=== PATIENT | male | born 1970 | race Caucasian/White ===

== ENCOUNTER 2023-11-20 14:59 | Emergency (ER) | payer SELFPAY ==
[2023-11-20] MEDS ORDERED: Lidocaine 1% w/Epinephrine 1:100K 20 ML VIAL ONE (15:38)
[2023-11-20] MEDS ORDERED: Bacitracin 1 PK ONE (16:35)
== END 2023-11-20 16:38 | disposition home or self-care (01) ==
LOC: MADERS 14:59
DX: S01.01XA Laceration without foreign body of scalp, initial encounter (principal); I12.9 Hypertensive chronic kidney disease with stage 1 through stage 4 chronic kidney disease, or unspecified chronic kidney disease; E11.22 Type 2 diabetes mellitus with diabetic chronic kidney disease; N18.2 Chronic kidney disease, stage 2 (mild); F17.210 Nicotine dependence, cigarettes, uncomplicated; W22.8XXA Striking against or struck by other objects, initial encounter; Z79.899 Other long term (current) drug therapy
CPT/HCPCS: 12002; 99282

== ENCOUNTER 2023-12-01 22:49 | Emergency (ER) | payer SELFPAY | END 2023-12-01 23:57 | disposition home or self-care (01) | LOC: MADERS 22:49 | DX: S01.01XD Laceration without foreign body of scalp, subsequent encounter (principal); F17.210 Nicotine dependence, cigarettes, uncomplicated; I12.9 Hypertensive chronic kidney disease with stage 1 through stage 4 chronic kidney disease, or unspecified chronic kidney disease; E11.22 Type 2 diabetes mellitus with diabetic chronic kidney disease; N18.9 Chronic kidney disease, unspecified; W26.8XXD Contact with other sharp object(s), not elsewhere classified, subsequent encounter ==

== ENCOUNTER 2024-05-28 16:09 | Emergency (ER) | payer SELFPAY ==
[2024-05-28 17:09] LABS: Bilirubin Negative (Negative); Blood, Urine Negative (Negative); Clarity Clear (Clear); Glucose, Urine (Dipstick) Negative (Negative); Ketone, Urine Negative (Negative); Leukocyte Negative (Negative); Nitrite Negative (Negative); Protein, Urine (Dipstick) 100 mg/dL (Neg-Trace); Specific Gravity, Urine 1.025 (1.005-1.030); Urobilinogen 0.2 mg/dL (Less than 2)
[2024-05-28 17:10] LABS: Bacteria/HPF Rare-Few HPF (None Seen); CAUTI Indications for Culture Pelvic or flank pain; RBC/HPF 0-3 HPF (0-3); Squamous Epithelial 0-3 HPF (0-3); WBC/HPF 0-3 HPF (0-3)
[2024-05-28 17:11] LABS: Urine Culture Reflex No No
[2024-05-28 17:19] LABS: Amphetamine Detected (NotDetected); Barbiturates Screen Not Detected (NotDetected); Benzodiazepine Screen Not Detected (NotDetected); Cocaine Metabolite Screen Not Detected (NotDetected); Methadone Not Detected (NotDetected); Methamphetamine Detected (NotDetected); Opiate Screen Not Detected (NotDetected); Oxycodone Screen Not Detected (NotDetected); Phencyclidine (PCP) Not Detected (NotDetected); THC/Cannabinoid Screen Not Detected (NotDetected); Tricyclic Screen Not Detected (NotDetected)
[2024-05-28] MEDS ORDERED: Sodium Chloride 0.9% 1,000 ML ONE ×2 (17:21→18:12)
[2024-05-28] MEDS ORDERED: Ketorolac Tromethamine 30 MG (1 mL) VIAL ONE (17:21)
[2024-05-28] MEDS ORDERED: Ondansetron PF 4 MG/2 ML Vial ONE (17:21)
[2024-05-28] MEDS ORDERED: Gabapentin 100 MG CAP ONE (17:21)
[2024-05-28 17:33] LABS: #Basophils 0.1 thou/uL (0.0-0.2); #Eosinphils 0.3 thou/uL (0.0-0.7); #Lymphocytes 2.5 thou/uL (1.20-3.40); #Monocytes 0.5 thou/uL (0.11-0.59); #Neutrophils 4.1 thou/uL (1.40-6.50); %Basophils 1.3 % (0.0-1.0); %Eosinophils 4.3 % (0.0-10.0); %Monocytes 6.6 % (0.0-10.0); %Neutrophils 54.8 % (42.0-75.0); Hematocrit 55.1 % (42.0-52.0); Hemoglobin 16.8 g/dL (14.0-18.0); Mean Corpuscular HGB CONC 30.5 g/dL (32.0-36.0); Mean Corpuscular Volume 88.5 fl (78.0-98.0); Mean Platelet Volume 8.3 fL (7.4-10.4); Platelet Count 231 10x3/uL (130-400); Red Blood Cell (RBC) Count 6.22 mill/uL (4.70-6.10); White Blood Cell (WBC) Count 7.5 10x3/uL (4.8-10.8)
[2024-05-28 17:43] LABS: Base Excess-Venous -1.3 mmol/L (-2.0 to 3.0); Bicarbonate (HCO3v) 20.8 mmol/L (22.0-28.0); CO2 Tension (PvCO2) 28.4 mmHg (42.0-51.0); Calcium, Ionized 1.16 mmol/L (1.15-1.33); Chloride 106 mmol/L (98-107); Hemoglobin - Calc 16.7 g/dL (14.0-18.0); Sodium 137 mmol/L (138-145); T. Carbon Dioxide 21.7 mmol/L (22.0-28.0); vO2 Saturation-calc 99.3 % (60.0-85.0)
[2024-05-28 17:47] LABS: Troponin I 0.037 ng/mL (< 0.028)
[2024-05-28 17:48] LABS: Acetaminophen Less than 10 mcg/mL (10.0-30.0); Alcohol Less than 10.0 mg/dL (Less than 10); Lipase 121 U/L (8-78); Salicylate Less than 8.0 mg/dL (15.0-30.0)
[2024-05-28 17:51] LABS: ALT (SGPT) 74 U/L (8-55); AST (SGOT) 51 U/L (5-34); Albumin 3.8 g/dL (3.5-5.0); Alkaline Phosphatase 100 U/L (40-110); Anion Gap 15 mmol/L (10-20); BUN (Urea Nitrogen) 15 mg/dL (8.4-25.7); Bilirubin, Total 0.5 mg/dL (0.2-1.2); Calc. Creatinine Clearance 0 mL/min (70-130); Calcium 8.9 mg/dL (7.8-10.44); Carbon Dioxide 18 mmol/L (22-29); Chloride 107 mmol/L (98-107); Estimated GFR 65; Globulin 3.2 g/dL (2.4-3.5); Glucose 151 mg/dL (70-105); Potassium 4.7 mmol/L (3.5-5.1); Sodium 135 mmol/L (136-145)
[2024-05-28] MEDS ORDERED: Aspirin Chewable 81 MG TAB ONE (18:11)
[2024-05-28] MEDS ORDERED: cloNIDine 0.1 MG TAB ONE (18:11)
[2024-05-28] MEDS ORDERED: Lisinopril 10 MG TAB ONE (18:52)
[2024-05-28 20:19] LABS: Troponin I 0.037 ng/mL (< 0.028)
[2024-05-29 11:39] LABS: Hemoglobin A1c 9.6 % (4.0-6.0)
== END 2024-05-28 20:41 | disposition home or self-care (01) ==
LOC: MADERS 16:09
DX: M54.50 Low back pain, unspecified (principal); E11.40 Type 2 diabetes mellitus with diabetic neuropathy, unspecified; E11.65 Type 2 diabetes mellitus with hyperglycemia; I12.9 Hypertensive chronic kidney disease with stage 1 through stage 4 chronic kidney disease, or unspecified chronic kidney disease; E11.22 Type 2 diabetes mellitus with diabetic chronic kidney disease; N18.2 Chronic kidney disease, stage 2 (mild); R30.0 Dysuria; R11.2 Nausea with vomiting, unspecified; F17.210 Nicotine dependence, cigarettes, uncomplicated
CPT/HCPCS: 36416; 71045; 80053; 80306; 80307; 81001; 82330; 82435; 82803; 83036; 83690; 84132; 84295; 84484; 85014; 85025; 93005; 96361; 96374; 96375; J1885; J2405; J7030

== ENCOUNTER 2025-07-05 14:44 | Emergency (ER) | payer OTHER ==
[2025-07-05 15:11] LABS: #Basophils 0.1 thou/uL (0.0-0.2); #Eosinophils 0.4 thou/uL (0.0-0.7); #Lymphocytes 2.6 thou/uL (1.20-3.40); #Monocytes 0.6 thou/uL (0.11-0.59); #Neutrophils 3.7 thou/uL (1.40-6.50); %Basophils 1.3 % (0.0-1.0); %Eosinophils 5.7 % (0.0-10.0); %Lymphocytes 35.1 % (21.0-51.0); %Monocytes 8.0 % (0.0-10.0); %Neutrophils 49.8 % (42.0-75.0); Hematocrit 47.4 % (42.0-52.0); Hemoglobin 15.3 g/dL (14.0-18.0); Mean Corpuscular Hemoglobin 28.9 pg (27.0-31.0); Mean Corpuscular Volume 89.9 fl (78.0-98.0); Platelet Count 232 10x3/uL (130-400); Red Blood Cell (RBC) Count 5.27 mill/uL (4.70-6.10); White Blood Cell (WBC) Count 7.3 10x3/uL (4.8-10.8)
[2025-07-05 15:25] LABS: ALT (SGPT) 19 U/L (Less than 45); AST (SGOT) 17 U/L (11-34); Albumin 4.0 g/dL (3.1-4.5); Alkaline Phosphatase 111 U/L (40-110); Anion Gap 16 mmol/L (10-20); BUN (Urea Nitrogen) 28 mg/dL (8.4-25.7); Bilirubin, Total 0.2 mg/dL (0.3-1.2); Calc. Creatinine Clearance 0 mL/min (70-130); Calcium 8.9 mg/dL (7.8-10.44); Carbon Dioxide 20 mmol/L (22-29); Chloride 104 mmol/L (98-107); Globulin 3.3 g/dL (2.4-3.5); Potassium 4.4 mmol/L (3.5-5.1); Sodium 136 mmol/L (136-145)
[2025-07-05 15:26] LABS: Troponin I 0.021 ng/mL (< 0.028)
[2025-07-05 15:27] LABS: Glucose 439 mg/dL (70-105)
== END 2025-07-05 15:57 | disposition home or self-care (01) ==
LOC: MADERS 14:44
DX: R07.9 Chest pain, unspecified (principal); I12.9 Hypertensive chronic kidney disease with stage 1 through stage 4 chronic kidney disease, or unspecified chronic kidney disease; E11.22 Type 2 diabetes mellitus with diabetic chronic kidney disease; N18.2 Chronic kidney disease, stage 2 (mild); K21.9 Gastro-esophageal reflux disease without esophagitis; F17.210 Nicotine dependence, cigarettes, uncomplicated
CPT/HCPCS: 70450; 71045; 80053; 84484; 85025; 93005